=== PATIENT | male | born 1965 ===

== ENCOUNTER 2023-12-06 17:34 | Emergency (ER) | payer OTHER ==
[~2023-12-06] VITALS: Ht 175.3 cm; Wt 63.5 kg
== END 2023-12-06 18:35 | disposition home or self-care (01) ==
LOC: ER 17:34
DX: Z02.89 Encounter for other administrative examinations (principal); Z72.0 Tobacco use; F10.90 Alcohol use, unspecified, uncomplicated
CPT/HCPCS: 99284